=== PATIENT | female | born 1990 | race Caucasian/White ===

== ENCOUNTER 2016-11-09 18:33 | Emergency (ER) | payer OTHER ==
[~2016-11-09] VITALS: Ht 154.9 cm; Wt 82.6 kg
[2016-11-09 18:47] VITALS: BP 137/99
[2016-11-09] MEDS ORDERED: KETOROLAC 15 MG/ML VIAL IM ONE (19:15)
[2016-11-09] MEDS ORDERED: ONDANSETRON 4 MG ODT PO ONE (19:15)
--- NOTE | 2016-11-09 20:06 | NUR ---
PT TAKEN TO OF
--- NOTE | 2016-11-09 20:14 | NUR ---
PA NGUYEN EVALUATING PATIENT
[2016-11-09 20:25] VITALS: BP 122/74
--- NOTE | 2016-11-09 20:25 | NUR ---
Patient discharged with v/s stable. Written and verbal after care instructions given and explained. Patient alert, oriented and verbalized understanding of instructions. Ambulatory with steady gait. All questions addressed prior to discharge. ID band removed. Patient advised to follow up with PMD. Rx of [place] and Ibuprofen given. Patient educated on indication of medication including possible reaction and side effects. Opportunity to ask questions provided and answered.
== END 2016-11-09 20:25 | disposition home or self-care (01) ==
LOC: MED 18:33
DX: S39.012A Strain of muscle, fascia and tendon of lower back, initial encounter (principal); M79.1 Myalgia; V49.49XA Driver injured in collision with other motor vehicles in traffic accident, initial encounter; Y93.89 Activity, other specified; Y92.488 Other paved roadways as the place of occurrence of the external cause; Y99.8 Other external cause status
CPT/HCPCS: 72100; 99284